=== PATIENT | male | born 1940 | race African-American/Black ===

== ENCOUNTER 2016-08-02 23:19 | Emergency (ER) | payer MEDICARE, OTHER ==
[~2016-08-02] VITALS: Ht 175.3 cm; Wt 76.0 kg
[~2016-08-02 23:19] MED LIST: ASPI-1035 PO; CLOP75TA2 PO; LISI-186 PO; LOVA40TA73 PO; VIAG100 PO
[2016-08-03] MEDS ORDERED: LIDOCAINE HCL 1% 20ML VIAL (Pyxis) INJ MC ONE (00:15)
[2016-08-03 00:24] VITALS: BP 127/81
[2016-08-03] MEDS ORDERED: LIDOCAINE/EPINEPHR/TETRACAINE 3ML TP ONE (01:15)
== END 2016-08-03 03:25 | disposition home or self-care (01) ==
LOC: ER 23:21
DX: L02.31 Cutaneous abscess of buttock (principal); Z79.82 Long term (current) use of aspirin; Z79.899 Other long term (current) drug therapy; Z96.649 Presence of unspecified artificial hip joint; Z95.818 Presence of other cardiac implants and grafts
CPT/HCPCS: 99283; J3490

== ENCOUNTER 2021-03-16 00:55 | Emergency (ER) | payer MEDICARE, OTHER ==
[~2021-03-16] VITALS: Ht 170.2 cm; Wt 64.0 kg
[~2021-03-16 00:55] MED LIST changes: -ASPI-1035 PO; +ASPI-1497 PO; +BUDE6.9H IH; +CLOP75TA15 PO; -CLOP75TA2 PO; +COLC0.6C3 PO; -LISI-186 PO; +LOSA50TA41 PO; +METO25TA6 PO; -VIAG100 PO
[2021-03-16] MEDS ORDERED: KETOROLAC 30MG/ML VIAL IV STA (01:42)
[2021-03-16] MEDS ORDERED: SODIUM CHLORIDE 0.9% 1,000 ML IV ONE (01:45)
[2021-03-16 02:56] LABS: BASOPHILS % 0.6 % (0.0-2.0); EOSINOPHILS % 3.3 % (0.0-5.0); HEMATOCRIT. 38.7 % (42.0-52.0); HEMOGLOBIN. 13.1 g/dL (14.0-18.0); LYMPHOCYTES % 29.5 % (20.0-50.0); MEAN CORPUSCULAR HEMOGLOBIN 36.2 pg (28.0-32.0); MEAN CORPUSCULAR VOLUME 107.2 fL (80.0-94.0); MEAN PLATELET VOLUME 7.6 fl (7.4-10.4); MONOCYTES % 14.1 % (2.0-8.0); NEUTROPHILS % 52.5 % (40.0-76.0); PLATELET 113 x1000/uL (130-400); RED BLOOD CELL COUNT 3.61 mill/uL (4.7-6.1); RED CELL DISTRIBUTION WIDTH 13.4 % (11.6-14.6)
[2021-03-16 03:04] LABS: CLARITY URINE CLEAR (CLEAR); COLOR URINE YELLOW (YELLOW); KETONES URINE NEGATIVE (NEGATIVE); LEUKOCYTE ESTERASE URINE NEGATIVE (NEGATIVE); NITRITE URINE NEGATIVE (NEGATIVE); OCCULT BLOOD URINE 2+ (NEGATIVE); PROTEIN URINE 4+ (NEGATIVE); SPECIFIC GRAVITY URINE 1.022 (1.005-1.030); UROBILINOGEN URINE 0.2 E.U./dL (0.2-1.0)
[2021-03-16 03:11] LABS: CHLORIDE 107 mEq/L (98-107)
[2021-03-16 03:30] VITALS: BP 142/85
[2021-03-16] MEDS ORDERED: IBUP-2029 MT (04:42)
== END 2021-03-16 05:05 | disposition home or self-care (01) ==
LOC: ER 00:55
DX: K40.90 Unilateral inguinal hernia, without obstruction or gangrene, not specified as recurrent (principal); I25.2 Old myocardial infarction; I10 Essential (primary) hypertension; J44.1 Chronic obstructive pulmonary disease with (acute) exacerbation; Z79.899 Other long term (current) drug therapy
CPT/HCPCS: 36415; 74176; 80053; 81003; 85025; 96361; 96374; 99284; J1885; J7030